=== PATIENT | male | born 1970 | race Caucasian/White ===

== ENCOUNTER 2019-10-13 17:42 | Emergency (ER) | payer SELFPAY ==
[2019-10-13 17:55] VITALS: BP 193/100; PULSE 92; RESP 14; TEMP 35.5; O2SAT 99
[2019-10-13] MEDS: AMOXICILLIN/CLAV 875/125 MG 1 TAB PO (18:26)
[2019-10-13] MEDS: LIDOCAINE/PRILOCAINE 5 GM TOP (18:27)
--- NOTE | 2019-10-13 18:34 | ED.ANIMALBIT ---
HPI - Animal Bite General Chief Complaint: Animal Bite Stated Complaint: Dog Attack To Left Side Of Face Time Seen by Provider: 10/13/19 18:00 Source: patient Mode of arrival: Ambulatory History of Present Illness HPI narrative: 49-year-old otherwise healthy gentleman presents after his dog bit him in the face. They have had the dogs for 2 years now and the dog is quite skittish upset when other people around. There is increased activity around the house today and patient was trying to calm the dog, which proved ineffective. No concern for rabies or other infectious etiologies. The wound blood for a period of time, controlled with pressure. Not bleeding at this point. Related Data Previous Rx's Medication Instructions Recorded amoxicillin-pot clavulanate 1 tab PO BID #14 tab 10/13/19 [Augmentin XR] Review of Systems Review of Systems Narrative: Pertinent positive and negative findings as per HPI Remainder of review of systems is otherwise unremarkable for Constitutional: Fevers, chills, weakness ENT: No sore throat, neck pain, ear pain CV: Chest pain, palpitations, dyspnea on exertion Respiratory: Cough, wheeze, dyspnea Patient History Medical History Healthy adult (Acute) Social History Smoking Status: Current every day smoker Smoking Status: Current every day smoker alcohol intake frequency: 3 or more drinks per day Substance Use Type: does not use Exam Narrative Exam Narrative: General: Alert appropriate in no acute distress HEENT: There is a 1.5 cm laceration with a row of small puncture wounds lateral to that consistent with a bite mild surrounding erythema. No cervical adenopathy Respiratory: Able to speak in full sentences, no obvious respiratory distress Skin: No obvious rashes, warm and dry Neurologic: Grossly intact no obvious asymmetries or abnormalities Psych, appropriate insight and affect, cooperative Extremity: An area mid forearm of contusion where the dog was biting his arm through his coat Initial Vital Signs Initial Vital Signs: Vital Signs Temperature 96 F L 10/13/19 17:55 Pulse Rate 92 H 10/13/19 17:55 Respiratory Rate 14 10/13/19 17:55 Blood Pressure 193/100 H 10/13/19 17:55 Pulse Oximetry 99 10/13/19 17:55 Procedures Laceration Repair Laceration 1: Site: face Side (If applicable): left Size (cm): 1.5 Description: linear Depth: simple, single layer Local Anesthetic: other anesthetic (Topical) Pre-repair: wound explored Skin layer closed with: nylon Size (cm): 4-0 Number of sutures: 1 Technique: simple, interrupted (Loosely reapproximated only) Course Orders Ordered: Discontinued Medications Amoxicillin/Clavulanate Potassium (Augmentin 875-125 Mg) 1 tab PO NOW ONE Stop: 10/13/19 18:23 Last Admin: 10/13/19 18:26 Dose: 1 tab Documented by: FABIO Lidocaine/Prilocaine (Lidocaine-Prilocaine Cream) 5 gm TOP NOW ONE Stop: 10/13/19 18:23 Last Admin: 10/13/19 18:27 Dose: 5 gm Documented by: FABIO Vital Signs Vital signs: Vital Signs - 8 hr 10/13/19 17:55 Temperature 96 F L Pulse Rate 92 H Respiratory Rate 14 Blood Pressure 193/100 H Pulse Oximetry 99 [facility] - Animal Bite Medical Records Attestation: I reviewed the patient's medical records. [facility] Narrative Medical decision making narrative: 49-year-old gentleman bit by his own head with his head agitated. Augmentin, single stitch to reapproximate the wound to the left lower side of his face. Safe for home discharge Discharge Plan Departure Patient Disposition: Home Clinical Impression: Dog bite Qualifiers: Encounter type: initial encounter Qualified Code(s): W54.0XXA - Bitten by dog, initial encounter Instructions: DI for Dog Bite Activity Restrictions/Additional Instructions: I am sorry you had this awful experience today There is 1 suture to reapproximate the wound so it will heal better but still be able to drain if necessary. You will need that stitch out in a week. Please complete a week of Augmentin, antibiotics to prevent any infection. If you do notice increased redness, swelling or drainage or increasing pain you do need to be re-evaluated. Using 400 mg of ibuprofen (2 [id number] pills) and 1 Tylenol every 6 hours can be very helpful in controlling pain. There are a couple that is in town that may well be willing to come out to your house, I have included their names and numbers and you can make some phone calls tomorrow. I wish you the best Aris Sher B DVM [address] [place] [address] Dr Jean Paul Rose, [address] [address] [facility] – ?? Prescriptions: New amoxicillin-pot clavulanate [Augmentin XR] 1,000-62.5 mg tablet extended release 12 hr 1 tab PO BID Qty: 14 RF: 0
== END 2019-10-13 19:39 | disposition home or self-care (01) ==
PROVIDERS: Emergency Provider Emergency Medicine
DX: S01.85XA Open bite of other part of head, initial encounter (principal); W54.0XXA Bitten by dog, initial encounter
CPT/HCPCS: 12011; 99283